=== PATIENT | male | born 1960 | race Caucasian/White ===

== ENCOUNTER 2022-12-14 09:28 | Outpatient (CLI) | payer BC ==
[2022-12-14] MEDS ORDERED: Magnevist 469MG/ML 20 ML VIAL ONE (10:14)
== END 2022-12-14 09:29 | disposition home or self-care (01) ==
LOC: CSHMRI 09:28
PROVIDERS: ATTEND Urology
DX: C61 Malignant neoplasm of prostate (principal)
CPT/HCPCS: 72197